=== PATIENT | male | born 1965 | race Caucasian/White ===

== ENCOUNTER 2025-09-30 10:07 | Inpatient (IN) | payer OTHER ==
[~2025-09-30] VITALS: Ht 170.2 cm; Wt 84.0 kg
[2025-09-30] MEDS ORDERED: LOSA-382 PO (10:46)
[2025-09-30 10:51] LABS: PLATELET COUNT (AUTO) 255 K/uL (150-450); RED BLOOD CELL COUNT(AUTO) 4.96 MIL/uL (4.50-5.90); RED CELL DISTRIBUTION WIDTH 15.4 % (11.5-14.5); WHITE BLOOD COUNT (AUTO) 5.5 K/uL (4.5-11.0)
[2025-09-30 11:00] LABS: CALCIUM, TOTAL 8.8 mg/dL (8.8-10.5); CREATININE 1.23 mg/dL (0.60-1.30); GLOMERULAR FILTR. RATE CALC 60 mL/min (>60); GLUCOSE,RANDOM 117 mg/dL (70-110); SODIUM SERUM 136 mmol/L (136-145); UREA NITROGEN, BLOOD 13 mg/dL (7-18)
[2025-09-30 11:04] LABS: ASPARTATE AMINOTRANSFERASE 26 U/L (15-37); TOTAL PROTEIN, SERUM 7.5 g/dL (6.4-8.2)
[2025-09-30 11:09] LABS: TROPONIN I-HIGH SENSITIVITY 50 ng/L (<76)
[2025-09-30 11:30] LABS: ALCOHOL, BLOOD (SERUM) < 3 mg/dL (0-10)
[2025-09-30] MEDS ORDERED: MAGNESIUM HYDROXIDE SUSPENSION 30 ML UDCUP PO PRN (13:00)
[2025-09-30] MEDS: LOSARTAN POTASSIUM 25 MG TABLET PO SCH (13:52)
[2025-09-30 15:46] VITALS: BP 151/95; PULSE 74; RESP 18; TEMP 97.3; O2SAT 99
[2025-09-30] MEDS: HEPARIN SODIUM,PORCINE 5,000 UNITS/ML VIAL SQ SCH (15:46)
[2025-09-30 18:17] LABS: APPEARANCE,URINE CLEAR (CLEAR); GLUCOSE, URINE (UA) NEGATIVE (NEGATIVE); LEUKOCYTE ESTERASE ,URINE NEGATIVE (NEGATIVE); NITRATE,URINE NEGATIVE (NEGATIVE); OCCULT BLOOD,URINE NEGATIVE (NEGATIVE); PH,URINE DRUG SCREEN 5.5 (5.0-8.0); SPECIFIC GRAVITIY, URINE 1.008 (1.003-1.030)
[2025-09-30 18:24] LABS: AMPHET/METH SCREEN,URINE NEGATIVE (NEGATIVE); BARBITURATE SCREEN, URINE NEGATIVE (NEGATIVE); CANNABINOID SCREEN,URINE NEGATIVE (NEGATIVE); COCAINE SCREEN,URINE NEGATIVE (NEGATIVE); METHADONE SCREEN, URINE NEGATIVE (NEGATIVE)
[2025-09-30 18:27] LABS: ALCOHOL, URINE DRUG SCREEN NEGATIVE (NEGATIVE)
[2025-09-30 20:00] VITALS: BP 128/77; PULSE 70; RESP 18; TEMP 99.4; O2SAT 99
[2025-09-30] MEDS: DOCUSATE SODIUM 100 MG CAPSULE PO SCH (21:36)
[2025-10-01] VITALS: TEMP 98.8
[2025-10-01] MEDS: ACETAMINOPHEN 325 MG TABLET PO PRN (01:04)
[2025-10-01] MEDS: ZOLPIDEM TARTRATE 5 MG TABLET PO PRN (01:04)
[2025-10-01 05:20] VITALS: BP 148/87; PULSE 81; RESP 17; TEMP 97.3; O2SAT 97
[2025-10-01] MEDS: FAMOTIDINE 20 MG TABLET PO SCH (08:22)
[2025-10-01 08:42] VITALS: BP 149/101; PULSE 85; RESP 18; TEMP 99; O2SAT 97
[2025-10-01 16:50] VITALS: BP 145/83; PULSE 77; RESP 18; TEMP 98.2; O2SAT 95
[2025-10-01 20:00] VITALS: BP 147/88; PULSE 75; RESP 18; TEMP 98.9; O2SAT 97
[2025-10-02 06:09] VITALS: BP 150/91; PULSE 74; RESP 18; TEMP 97.9; O2SAT 97
[2025-10-02 08:10] VITALS: BP 169/92; PULSE 81; RESP 18; TEMP 97.7; O2SAT 98
[2025-10-02] MEDS: LOSARTAN POTASSIUM 50 MG TABLET PO SCH ×2 (09:00→09:02)
[2025-10-02 20:30] VITALS: BP 156/84; PULSE 86; RESP 18; TEMP 98.2; O2SAT 97
[2025-10-03] VITALS: BP 151/91; PULSE 76; RESP 18; TEMP 98; O2SAT 96
[2025-10-03 05:08] VITALS: BP 143/94; PULSE 79; RESP 18; TEMP 98.6; O2SAT 97
[2025-10-03 08:09] VITALS: BP 161/89; PULSE 88; RESP 18; TEMP 97.7; O2SAT 95
[2025-10-03] MEDS: METOPROLOL TARTRATE 25 MG TABLET PO SCH (08:12)
[2025-10-03 09:51] VITALS: BP 164/82; PULSE 80
[2025-10-03] MEDS: NIFEdipine 60 MG ER TABLET PO SCH (10:15)
[2025-10-03 11:34] VITALS: BP 143/94; PULSE 73
[2025-10-03] MEDS ORDERED: NIFE90TA91 PO (12:32)
[2025-10-03] MEDS ORDERED: METO25 PO (12:32)
== END 2025-10-03 13:11 | DRG 305 ==
LOC: EMS 10:15 → EDH 12:53 → 6S 15:32
PROVIDERS: ADMIT Internal Medicine; ATTEND Internal Medicine
DX: I16.0 Hypertensive urgency (principal); I10 Essential (primary) hypertension
CPT/HCPCS: 71045; 80048; 80076; 80307; 81003; 83880; 84484; 85025; 93005; 99285; G0480; J1644; 36415-L1; 36415-TC